=== PATIENT | female | born 1990 | race Caucasian/White ===

== ENCOUNTER 2016-05-31 15:38 | Emergency (ER) | payer OTHER ==
[~2016-05-31] VITALS: Ht 157.5 cm; Wt 43.1 kg
[2016-05-31 15:48] VITALS: BP 98/62
--- NOTE | 2016-05-31 16:44 | ED ANIMAL BITE/WOUND CHECK ---
History of Present Illness General Chief Complaint: Skin Rash/ Abcess Stated Complaint: PT HAS ABSCESS ON THE RG ARM WITH PACKING Source: patient Exam Limitations: no limitations Vital Signs & Intake/Output Vital Signs & Intake/Output Vital Signs Date Time Temp Pulse Resp B/P Pulse O2 O2 Flow FiO2 Ox Delivery Rate 05/31 1548 97.7 74 20 98/62 99 Room Air Allergies Coded Allergies: No Known Allergies (05/31/16) Triage Note: TRIAGE: PT TO ER REQUESTING WOUND CHECK. HAS ABSCESS TO RFA WHICH SHE HAS BEEN SEEN [facility] HAS PACKING IN PLACE AND WAS PRESCRIBED BACTRIM BID. Triage Nurses Notes Reviewed? yes : No Patient currently breastfeeds: No HPI: 26-year-old female with right forearm abscess has been there for approximately one week which occurred from injecting heroin. She was seen at [facility] and had I&D 2 days ago and packing was placed. She was placed on Bactrim. She is still taking the antibiotics. She has no fever or flulike illness, no nausea no vomiting, her pain is much improved. (BRIAN MCCABE) Past History Travel History Traveled to [place] past 21 day No Medical History Any Pertinent Medical History? see below for history Neurological: NONE EENT: NONE Cardiovascular: ?SVT Respiratory: NONE Gastrointestinal: GERD, GASTRITIS Hepatic: NONE Renal: INTERSTITIAL CYSTITIS Musculoskeletal: ABSCESS RFA Psychiatric: NONE Endocrine: NONE Blood Disorders: NONE Cancer(s): NONE WELFARE WORKER/Reproductive: NONE Surgical History Surgical History: non-contributory Psychosocial History What is your primary language Georgian Tobacco Use: Current Daily Use Daily Tobacco Use Amount/Type: => 5 Cigarettes daily ETOH Use: occasional use Illicit Drug Use: heroin Family History Hx Contributory? No (BRIAN MCCABE) Review of Systems Review of Systems Constitutional: Reports: see HPI. EENTM: Reports: no symptoms. Respiratory: Reports: no symptoms. Cardiovascular: Reports: no symptoms. GI: Reports: no symptoms. Genitourinary: Reports: no symptoms. Musculoskeletal: Reports: no symptoms. Skin: Reports: see HPI. Neurological/Psychological: Reports: no symptoms. Hematologic/Endocrine: Reports: no symptoms. Immunologic/Allergic: Reports: no symptoms. All Other Systems: Reviewed and Negative (BRIAN MCCABE) Physical Exam Physical Exam General Appearance: well developed/nourished Comments: Well-developed well-nourished no apparent distress. HEENT: Atraumatic, extraocular motion intact Neck: Supple, no lymphadenopathy Back: Nontender Respiratory: No respiratory distress Extremities: No edema, full range of motion Right forearm with dressing in place, dressing was removed, small amount of purulent discharge noted on the dressing from the wound at the right proximal forearm incision and drainage site. A drain is in place which was removed in its entirety by myself. Small amount of purulent discharge was expressed. Mild induration and mild erythema, significantly improved from the previously outlined area. It is moderately tender to palpation. Neurovascularly intact. Neuro: Alert and oriented x3 Psych: Mood affect normal, normal memory normal judgment. Skin: Warm and dry, no rash on exposed skin (BRIAN MCCABE) Progress Differential Diagnosis: abscess, cellulitis, joint infection, tenosysnovitis Plan of Care: Continue antibiotics, recommend stop abusing IV drugs which was discussed with patient in detail. She is to return with any worsening signs of infection, recommend warm compresses. (BRIAN MCCABE) Departure Departure Disposition: HOME OR SELF CARE Condition: Stable Clinical Impression Primary Impression: Wound check, abscess Referrals: PATIENT HAS NO PRIMARY CARE DR (PCP/Family) Additional Instructions: Return with worsening redness, swelling, pain, fever or flulike illness. Apply warm compresses and bacitracin daily with dressing changes Departure Forms: Customer Survey General Discharge Information (BRIAN MCCABE) PA/[employer] Co-Sign Statement Statement: ED Attending supervision documentation- [] I saw and evaluated the patient. I have also reviewed all the pertinent lab results and diagnostic results. I agree with the findings and the plan of care as documented in the PA's/[employer]'s documentation. [X] I have reviewed the ED Record and agree with the PA's/[employer]'s documentation. [] Additions or exceptions (if any) to the PAs/[employer]'s note and plan are summarized below: [] (KAYLEIGH HEWITT,KAITLYNN)
== END 2016-05-31 16:47 ==
LOC: ERH 15:38
DX: L02.413 Cutaneous abscess of right upper limb (principal)
CPT/HCPCS: 99282